=== PATIENT | female | born 1985 | race Caucasian/White ===

== ENCOUNTER 2017-11-17 10:22 | Emergency (ER) | payer MEDICARE, MEDICAID ==
[~2017-11-17] VITALS: Ht 162.6 cm; Wt 158.8 kg
[~2017-11-17 10:22] MED LIST: CLONAZEPAM 1 MG1 M1 PO; IBUPROFEN 800800 M1 PO; NORCO 5-325 TA1 EAC1 PO; ZOFRAN ODT4 MG PO
[2017-11-17 10:32] VITALS: BP 157/91
[2017-11-17] MEDS ORDERED: ALEVE220 MG PO (10:33)
[2017-11-17] MEDS ORDERED: IBUPROFEN 600600 M1 PO (10:33)
[2017-11-17] MEDS ORDERED: MELATONIN5 M1 PO (10:34)
[2017-11-17] MEDS ORDERED: APAP650 PO (10:34)
[2017-11-17] MEDS ORDERED: MEDROLDOSEPACK PO (10:47)
[2017-11-17] MEDS ORDERED: IBU600 MG PO (10:47)
[2017-11-17] MEDS ORDERED: ZANAFLEX4 MG PO (10:47)
== END 2017-11-17 10:55 | disposition home or self-care (01) ==
LOC: M.ERS 10:22
DX: M54.30 Sciatica, unspecified side (principal); Z90.49 Acquired absence of other specified parts of digestive tract; Z90.721 Acquired absence of ovaries, unilateral; Z88.8 Allergy status to other drugs, medicaments and biological substances

== ENCOUNTER 2019-05-24 16:53 | Emergency (ER) | payer OTHER ==
[~2019-05-24] VITALS: Ht 160 cm; Wt 154.2 kg
[~2019-05-24 16:53] MED LIST changes: +ALEVE220 MG PO; +APAP650 PO; +IBU600 MG PO; +IBUPROFEN 600600 M1 PO; +MEDROLDOSEPACK PO; +MELATONIN5 M1 PO; +ZANAFLEX4 MG PO
[2019-05-24] MEDS ORDERED: IBU800 MG PO (17:23)
[2019-05-24] MEDS ORDERED: FLEXERIL PO (17:23)
[2019-05-24 17:41] VITALS: BP 134/87
== END 2019-05-24 17:41 | disposition home or self-care (01) ==
LOC: M.ERS 16:53
DX: M54.2 Cervicalgia (principal); Z88.8 Allergy status to other drugs, medicaments and biological substances; Z90.49 Acquired absence of other specified parts of digestive tract